=== PATIENT | male | born 1990 | race Asian ===

== ENCOUNTER 2017-05-13 00:28 | Emergency (ER) | payer OTHER ==
[~2017-05-13] VITALS: Ht 182.9 cm; Wt 79.4 kg
[2017-05-13 04:04] VITALS: BP 120/69; TEMP 97.8
== END 2017-05-13 04:05 | disposition home or self-care (01) ==
LOC: ED 00:28
DX: M51.36 Other intervertebral disc degeneration, lumbar region (principal)
CPT/HCPCS: 96372; 99283; J1885